=== PATIENT | female | born 1985 | race Caucasian/White ===

== ENCOUNTER 2019-12-14 16:45 | Emergency (ER) | payer BC, OTHER, SELFPAY ==
[2019-12-14 16:45] VITALS: BP 122/75; PULSE 110; RESP 24; TEMP 36.7; O2SAT 100
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
[2019-12-14 17:15] VITALS: BP 122/75; PULSE 110; RESP 18; TEMP 36.7; O2SAT 100
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
[2019-12-14 18:00] VITALS: BP 114/71; PULSE 98; RESP 12; O2SAT 100
== END 2019-12-14 18:01 | disposition home or self-care (01) ==
PROVIDERS: Emergency Provider Emergency Medicine; PCP Family Medicine
DX: S40.811A Abrasion of right upper arm, initial encounter (principal); V44.5XXA Car driver injured in collision with heavy transport vehicle or bus in traffic accident, initial encounter
CPT/HCPCS: 71045; 72020; 72170; 99283